=== PATIENT | female | born 1955 | race Two or more races ===

== ENCOUNTER → 2021-08-19 | Day surgery (SDC) | payer OTHER | END | disposition home or self-care (01) | LOC: ADM 08-15 12:30 → AMB-ENDOS 06:23 | PROVIDERS: ATTEND Surgery | DX: D01.3 Carcinoma in situ of anus and anal canal (principal); K64.8 Other hemorrhoids; Z20.822 Contact with and (suspected) exposure to COVID-19 ==

== ENCOUNTER 2021-09-18 06:05 | Day surgery (SDC) | payer OTHER ==
[~2021-09-18 06:05] MED LIST: GABAPENTIN800 M1; GLIMEPIRIDE2 MG; GLUMETZA500 MG; SEROQUEL200 MG; SEROQUEL25 MG; XANAX2 MG
[2021-09-18] MEDS ORDERED: PERCOCET 5-3251 EACH PO (09:45)
[2021-09-18] MEDS ORDERED: RECTICARE30 GM TOP (09:46)
== END 2021-09-18 14:30 | disposition home or self-care (01) ==
LOC: CIR.AMB 06:05
PROVIDERS: ATTEND Surgery
DX: K62.6 Ulcer of anus and rectum (principal); Z20.822 Contact with and (suspected) exposure to COVID-19

== ENCOUNTER 2025-08-03 07:43 | Inpatient (IN) | payer OTHER ==
[~2025-08-03] VITALS: Ht 160 cm; Wt 57.6 kg
[~2025-08-03 07:43] MED LIST changes: +PERCOCET 5-3251 EACH PO; +RECTICARE30 GM TOP
[2025-08-03] MEDS ORDERED: MIRTAZAPINE15 MG PO (08:39)
[2025-08-03] MEDS ORDERED: CARAFATE1 GM PO (08:39)
[2025-08-03 08:49] VITALS: BP 154/78
[2025-08-09] MEDS ORDERED: CEFTRIAXONE SODIUM 2,000 MG VIAL IV ONE (12:15)
[2025-08-09] MEDS ORDERED: METRONIDAZOLE/SODIUM CHLORIDE 500 MG/100 ML PIGGYBACK IV ONE (12:15)
[2025-08-09] MEDS ORDERED: POVIDONE-IODINE 118 ML BOTT TOP ONE (12:15)
[2025-08-09] MEDS ORDERED: SUGAMMADEX SODIUM 200 MG/2 ML VIAL IV ONE (12:45)
[2025-08-09] MEDS ORDERED: VISTASEAL DUAL APPICATOR 1 EACH APPL TOP ONE (12:45)
[2025-08-09] MEDS ORDERED: THROMBIN,HU/FIBRINOGEN/CALCIUM 4 ML SYRINGE TOP ONE (12:45)
[2025-08-09] MEDS ORDERED: RINGERS SOLUTION,LACTATED 1,000 ML IV SCH (14:00)
[2025-08-09] MEDS ORDERED: MORPHINE SULFATE 4 MG/ML CARTRIDGE IV PRN (14:00)
[2025-08-09] MEDS ORDERED: ONDANSETRON HCL 2 MG/ML VIAL IV PRN (14:00)
[2025-08-09 17:00] LABS: BASO % 0.3 % (0.1-1.2); EOS # 0.01 (0.04-0.54); EOS % 0.2 % (0.7-7.0); LYMPH # 0.77 (1.18-3.74); LYMPH % 12.2 % (19.3-53.1); MEAN PLATELET VOLUME 11.60 fl (9.4-12.4); MONO # 0.25 (0.24-0.82); MONO % 3.9 % (4.7-12.5); NEUT # 5.23 (1.56-6.13); NEUT % 82.6 % (34.0-71.1); RED CELL DISTRIBUTION WIDTH 13.9 % (11.6-14.4)
[2025-08-09] MEDS ORDERED: CEFAZOLIN SODIUM 1,000 MG VIAL IV SCH (17:00)
[2025-08-09] MEDS ORDERED: GABAPENTIN 300 MG CAPSULE PO SCH (17:00)
[2025-08-09 17:24] LABS: BUN CREA RATIO 16.0 (7.0-25.0); CREATININE SERUM 0.61 mg/dL (0.55-1.02); GFR 97.25; GLUCOSE FASTING 198.0 mg/dL (65-100); OSMOLALITY SERUM 295.0 MOSM/KG (275-295)
[2025-08-09] MEDS ORDERED: KETOROLAC TROMETHAMINE 30 MG VIAL IM SCH (18:00)
[2025-08-09] MEDS ORDERED: LEVOTHYROXINE SODIUM 75 MCG TABLET PO SCH (19:02)
[2025-08-09] MEDS ORDERED: PHENOL 177 ML BOTTLE MM SCH (19:15)
[2025-08-09 19:55] VITALS: BP 157/75; O2SAT 95
[2025-08-09] MEDS ORDERED: FAMOTIDINE/PF 20 MG/2 ML VIAL IV PUSH SCH (21:00)
[2025-08-09] MEDS ORDERED: DOCUSATE SODIUM 100MG CAP PO SCH (21:00)
[2025-08-10 01:20] VITALS: BP 128/66; O2SAT 97
[2025-08-10] MEDS ORDERED: LEVOTHYROXINE SODIUM 75 MCG TABLET PO SCH (06:00)
[2025-08-10 06:20] LABS: BASO % 0.3 % (0.1-1.2); EOS # 0.04 (0.04-0.54); EOS % 0.6 % (0.7-7.0); LYMPH # 1.15 (1.18-3.74); LYMPH % 17.5 % (19.3-53.1); MEAN PLATELET VOLUME 12.70 fl (9.4-12.4); MONO # 0.28 (0.24-0.82); MONO % 4.2 % (4.7-12.5); NEUT # 5.06 (1.56-6.13); NEUT % 76.8 % (34.0-71.1); RED CELL DISTRIBUTION WIDTH 13.7 % (11.6-14.4)
[2025-08-10 06:50] LABS: BUN CREA RATIO 11.0 (7.0-25.0); CREATININE SERUM 0.61 mg/dL (0.55-1.02); GFR 97.25; GLUCOSE FASTING 125.0 mg/dL (65-100); OSMOLALITY SERUM 288.0 MOSM/KG (275-295)
[2025-08-10 08:00] VITALS: BP 126/61; O2SAT 96
[2025-08-10] MEDS ORDERED: ACETAMINOPHEN 500 MG GEL..CAP PO PRN (08:30)
[2025-08-10] MEDS ORDERED: ENOXAPARIN SODIUM 40 MG/0.4 ML SYRINGE SUBCUTANEO SCH (09:00)
== END 2025-08-10 13:06 | disposition home or self-care (01) | DRG 742 ==
LOC: SURH 08-09 08:30 → O/R 08-09 09:00 → SURH 08-09 17:26
PROVIDERS: ADMIT Obstetrics & Gynecology Gynecologic Oncology; ATTEND Obstetrics & Gynecology Gynecologic Oncology
PROC: 0UT74ZZ Resection of Bilateral Fallopian Tubes, Percutaneous Endoscopic Approach (ICD-10-PCS; 2025-08-09)
PROC: 0UT24ZZ Resection of Bilateral Ovaries, Percutaneous Endoscopic Approach (ICD-10-PCS; 2025-08-09)
PROC: 07BC4ZZ Excision of Pelvis Lymphatic, Percutaneous Endoscopic Approach (ICD-10-PCS; 2025-08-09)
PROC: 0TN74ZZ Release Left Ureter, Percutaneous Endoscopic Approach (ICD-10-PCS; 2025-08-09)
PROC: 0TN64ZZ Release Right Ureter, Percutaneous Endoscopic Approach (ICD-10-PCS; 2025-08-09)
PROC: 0UT94ZZ Resection of Uterus, Percutaneous Endoscopic Approach (ICD-10-PCS; principal; 2025-08-09 22:00)
DX: N87.1 Moderate cervical dysplasia (principal); K62.6 Ulcer of anus and rectum